=== PATIENT | female | born 1960 | race Caucasian/White ===

== ENCOUNTER 2021-05-11 07:48 | Outpatient (CLI) | payer BC ==
--- NOTE | 2021-05-12 13:57 | Mammography Report ---
BILATERAL DIGITAL DIAGNOSTIC MAMMOGRAM 3D/2D: 05/11/2021 CLINICAL: Palpable right breast lump. Comparison is made to exams dated: 07/30/2018 mammogram, 12/18/2015 mammogram, 08/28/2014 mammogram, an d 03/02/2012 mammogram - outside location. The tissue of both breasts is predominantly fatty. No significant masses, calcifications, or other findings are seen in either breast. Specifically, no finding to correspond to the patient's right breast 5:00 palpable abnormality. Mammograms are otherw ise stable. IMPRESSION: INCOMPLETE: NEEDS ADDITIONAL IMAGING EVALUATION There is no abnormality seen in the right breast to correspond with the palpable abnormality indicate d by a triangular marker at 5 o'clock. Ultrasound is recommended for full evaluation of this area. T his was performed immediately following this exam. This exam was interpreted at Station ID: [id number]. NOTE: For mammograms, a report in lay terms will be sent to the patient. Approximately 15% of breast malignancies will not be visualized mammographically. In the management of a palpable breast mass, a negative mammogram must not discourage biopsy of a clinically suspicious lesion. Electronically Signed By: Angela nassar/:05/11/2021 08:43:06 ACR BI-RADS Category 0: Incomplete 3340F PARENCHYMAL PATTERN: (F) - The breast(s) demonstrate(s) diffuse fatty replacement. BI-RADS CATEGORY: (0) - 0 Ultrasound [id number] Immediate follow-up LATERALITY: (B)
--- NOTE | 2021-05-12 13:57 | Ultrasound Report ---
LIMITED ULTRASOUND OF RIGHT BREAST: 05/11/2021 CLINICAL: Palpable right breast lump and focal pain / tenderness. Comparison is made to exams dated: 05/11/2021 mammogram - [facility], 07/30/2018 mamm ogram, 12/18/2015 mammogram, 08/28/2014 mammogram, and 03/02/2012 mammogram - outside location. Real-time ultrasound of the right breast 6 o'clock region was performed. Hopkins scale images of the re al-time examination were reviewed. There is a linear, echogenic post-surgical scar in the right breast at 6 o'clock middle depth which i s seen extending through breast tissue to the dermal layer. This correlates as palpated. Color flow imaging demonstrates that there is no vascularity present. IMPRESSION: BENIGN There is no sonographic evidence of malignancy. The post-surgical scar in the right breast is benign. Return to annual mammogram screening schedule is recommended. Findings and recommendations were conveyed to the patient at time of exam. This exam was interpreted at Station ID: [id number]. Electronically Signed By: Angela nassar/:05/11/2021 09:57:25 Ultrasound BI-RADS: 2 Benign BI-RADS CATEGORY: (2) - 2 RECOMMENDATION: (ANNUAL) - Recommend routine annual screening mammography. [id number] return to screening LATERALITY: (B)
== END 2021-05-11 07:49 | disposition home or self-care (01) ==
LOC: DI 07:48
PROVIDERS: ATTEND Family Medicine
DX: N63.14 Unspecified lump in the right breast, lower inner quadrant (principal); N64.4 Mastodynia